=== PATIENT | female | born 1940 | race Caucasian/White ===

== ENCOUNTER 2021-04-13 02:20 | Inpatient (IN) | payer MEDICARE, OTHER ==
[~2021-04-13] VITALS: Ht 162.6 cm; Wt 96.7 kg
[2021-04-13 03:49] LABS: BASOPHILS ABSOLUTE AUTO 0.03 K/mm3 (0.00-0.23); BASOPHILS PERCENT AUTO 0 % (0-2); EOSINOPHILS ABSOLUTE AUTO 0.02 K/mm3 (0.00-0.68); EOSINOPHILS PERCENT AUTO 0 % (0-6); Hematocrit 34.7 % (33.0-51.0); Hemoglobin 11.6 g/dL (11.5-16.0); IMMATURE GRAN ABSOLUTE AUTO 0.05 K/mm3 (0.00-0.10); IMMATURE GRAN PERCENT AUTO 1 % (0-1); LYMPHOCYTES ABSOLUTE AUTO 0.28 K/mm3 (0.84-5.20); LYMPHOCYTES PERCENT AUTO 3 % (21-46); MONOCYTES ABSOLUTE AUTO 0.32 K/mm3 (0.16-1.47); MONOCYTES PERCENT AUTO 3 % (4-13); Mean Corpuscular HGB 33.6 pg (26.0-34.0); Mean Corpuscular HGB Conc 33.4 g/dL (31.5-36.5); Mean Corpuscular Volume 101 fL (80-100); Mean Platelet Volume 10.7 fL (9.1-12.4); NEUTROPHILS ABSOLUTE AUTO 8.84 K/mm3 (1.96-9.15); NEUTROPHILS PERCENT AUTO 93 % (41-73); Platelet Count 140 K/mm3 (150-400); RDW Coefficient Variation 12.6 % (11.7-14.2); RDW Standard Deviation 46.7 fL (35.1-46.3); Red Blood Cell Count 3.45 M/mm3 (3.80-5.20); White Blood Cell Count 9.54 K/mm3 (4.00-11.30)
[2021-04-13 04:12] LABS: Bun/Creatinine Ratio 13.6 (12.0-20.0); Calcium, Blood 9.8 mg/dL (8.5-10.1); Creatinine, Blood 3.98 mg/dL (0.40-1.00); Potassium, Blood 4.9 mmol/L (3.5-5.5)
[2021-04-13 06:23] LABS: Source, Urine Catheter
[2021-04-13 06:26] LABS: Appearance, Urine Clear (Clear); Bilirubin, Urine Neg (Neg); Blood, Urine 5+ (Neg); Color, Urine Yellow (P-Yellow); Glucose Qualitative, Urine Neg (Neg); Ketones, Urine Neg (Neg); Leukocyte Esterase, Urine Neg (Neg); Nitrite, Urine Neg (Neg); Protein, Urine Neg (Neg); Specific Gravity, Urine 1.015 (1.003-1.022); Urobilinogen, Urine NORM (Normal)
[2021-04-13] MEDS ORDERED: AMIODARONE HCL100 M3 PO (06:31)
[2021-04-13] MEDS ORDERED: FURO40 PO (06:31)
[2021-04-13] MEDS ORDERED: POTCHL20ER PO (06:32)
[2021-04-13] MEDS ORDERED: METO25ER PO (06:32)
[2021-04-13] MEDS ORDERED: PANT20 PO (06:32)
[2021-04-13] MEDS ORDERED: Sulindac200 MG PO (06:34)
[2021-04-13] MEDS ORDERED: ELIQUIS2.5 MG PO (06:34)
[2021-04-13 06:42] LABS: Bacteria Many /hpf; Squamous Epithelial Cells Rare /hpf (Few)
[2021-04-13 07:49] LABS: SARS-Cov-2 (COVID-19) PCR, MMC NEGATIVE (NEGATIVE)
--- NOTE | 2021-04-13 10:30 | NUR ---
PT ADMITTED. PT ORIENTED TO ROOM. CALL LIGHT IN REACH. WATER PROVIDED. IV FLUIDS STARTED. PT DENIES NEEDS AT THIS TIME
--- NOTE | 2021-04-13 17:17 | NUR ---
SHIFT SUMMARY PT WORKED WITH PHYSICAL THERAPY. AMBULATED TO THE DOOR AND BACK WITH 1P ASSIST. USING THE BSC FOR TOILETING. STOOL SAMPLE NEEDED. PT HAS LITTLE APPETITE, BUT EATING HER MEALS. DENIES NEED FOR PAIN MEDS AT THIS TIME. DR HARTLEY NOTIFIED ABOUT SCAB ON HER BACK AND CAME TO EVALUATE IT AND UPDATE FAMILY. PT RESTING IN BED, EATING DINNER. CALL LIGHT IN REACH. VS REVIEWED. DR. HARTLEY NOTIFIED OF HR IN THE 40S. PARAMETERS ADDED TO MEDS.
[2021-04-13 19:49] LABS: Bun/Creatinine Ratio 15.9 (12.0-20.0); Creatinine, Blood 3.46 mg/dL (0.40-1.00); Potassium, Blood 4.2 mmol/L (3.5-5.5)
[2021-04-14 05:16] LABS: BASOPHILS ABSOLUTE AUTO 0.02 K/mm3 (0.00-0.23); BASOPHILS PERCENT AUTO 0 % (0-2); EOSINOPHILS ABSOLUTE AUTO 0.02 K/mm3 (0.00-0.68); EOSINOPHILS PERCENT AUTO 0 % (0-6); Hematocrit 31.9 % (33.0-51.0); Hemoglobin 10.4 g/dL (11.5-16.0); IMMATURE GRAN ABSOLUTE AUTO 0.02 K/mm3 (0.00-0.10); IMMATURE GRAN PERCENT AUTO 0 % (0-1); LYMPHOCYTES ABSOLUTE AUTO 1.02 K/mm3 (0.84-5.20); LYMPHOCYTES PERCENT AUTO 13 % (21-46); MONOCYTES ABSOLUTE AUTO 0.75 K/mm3 (0.16-1.47); MONOCYTES PERCENT AUTO 9 % (4-13); Mean Corpuscular HGB Conc 32.6 g/dL (31.5-36.5); Mean Corpuscular Volume 101 fL (80-100); Mean Platelet Volume 11.5 fL (9.1-12.4); NEUTROPHILS ABSOLUTE AUTO 6.27 K/mm3 (1.96-9.15); NEUTROPHILS PERCENT AUTO 78 % (41-73); Platelet Count 132 K/mm3 (150-400); RDW Coefficient Variation 12.5 % (11.7-14.2); RDW Standard Deviation 46.4 fL (35.1-46.3); Red Blood Cell Count 3.15 M/mm3 (3.80-5.20)
[2021-04-14 05:32] LABS: Albumin, Blood 2.4 g/dL (3.4-5.0); Albumin/Globulin Ratio 0.8 (0.8-1.8); Bilirubin, Total 0.5 mg/dL (0.1-1.0); Bun/Creatinine Ratio 15.8 (12.0-20.0); Calcium, Blood 9.5 mg/dL (8.5-10.1); Creatinine, Blood 2.85 mg/dL (0.40-1.00); Globulin, Blood 3.2 g/dL (2.2-4.0); Magnesium, Blood 2.5 mg/dL (1.6-2.4); Potassium, Blood 4.2 mmol/L (3.5-5.5); Total Protein, Blood 5.6 g/dL (6.4-8.2)
--- NOTE | 2021-04-14 06:34 | NUR ---
SHIFT SUMMARY AOX4. VSS. REPORTED MILD PAIN 3-4/10 IN R HIP TO FOOT, GAVE TYLENOL 1X & NO FURTHER DISCOMFORT REPORTED. NO S/SX N/V OR SOB. REPORTS N/T TO BILAT HANDS. IN ISO FOR R/O C. DIFF, HOWEVER PT HASNT HAD ANY BM THIS SHIFT. ABD TENDER TO PALPATION T/O. REPORTS LACK OF APPETITE. ACTIVE BT. CALL LIGHT IN REACH & PT ABLE TO MAKE NEEDS KNOWN.
--- NOTE | 2021-04-14 16:07 | NUR ---
SHIFT SUMMARY FLUIDS WERE RESTARTED TODAY. NS AT 125ML/HR. PT TOLERATING WELL SO FAR. PT AMBULATING TO THE BATHROOM WITH MINIMAL ASSISTANCE. GETS HERSELF IN AND OUT OF BED ON HER OWN. PT AGREEABLE TO GETTING UP INTO CHAIR FOR MEALS AND STAYED UP FOR A FEW HOURS AFTER LUNCH. DENIES NEED FOR PAIN MEDS SO FAR THIS SHIFT. NO OTHER ACUTE CHANGES IN ASSESSMENT AT THIS TIME. VS REVIEWED. PT RESTING IN BED UNTIL DINNER ARRIVES.
--- NOTE | 2021-04-15 04:51 | NUR ---
COMMUNITY DEVELOPMENT AIDE SUMMARY PATIENT HAD A GOOD SHIFT. SHE DID NOT COMPLAIN FOR ANYTHING AT NIGHT. WILL CONTINUE TO MONITOR PATIENT.
[2021-04-15 08:55] LABS: BASOPHILS ABSOLUTE AUTO 0.02 K/mm3 (0.00-0.23); BASOPHILS PERCENT AUTO 0 % (0-2); EOSINOPHILS ABSOLUTE AUTO 0.11 K/mm3 (0.00-0.68); EOSINOPHILS PERCENT AUTO 2 % (0-6); Hematocrit 32.5 % (33.0-51.0); Hemoglobin 10.9 g/dL (11.5-16.0); IMMATURE GRAN ABSOLUTE AUTO 0.03 K/mm3 (0.00-0.10); IMMATURE GRAN PERCENT AUTO 0 % (0-1); LYMPHOCYTES ABSOLUTE AUTO 1.23 K/mm3 (0.84-5.20); LYMPHOCYTES PERCENT AUTO 17 % (21-46); MONOCYTES ABSOLUTE AUTO 0.56 K/mm3 (0.16-1.47); MONOCYTES PERCENT AUTO 8 % (4-13); Mean Corpuscular HGB 33.4 pg (26.0-34.0); Mean Corpuscular HGB Conc 33.5 g/dL (31.5-36.5); Mean Corpuscular Volume 100 fL (80-100); Mean Platelet Volume 10.9 fL (9.1-12.4); NEUTROPHILS ABSOLUTE AUTO 5.23 K/mm3 (1.96-9.15); NEUTROPHILS PERCENT AUTO 73 % (41-73); Platelet Count 161 K/mm3 (150-400); RDW Coefficient Variation 12.3 % (11.7-14.2); RDW Standard Deviation 45.4 fL (35.1-46.3); Red Blood Cell Count 3.26 M/mm3 (3.80-5.20); White Blood Cell Count 7.18 K/mm3 (4.00-11.30)
[2021-04-15 09:13] LABS: Bun/Creatinine Ratio 16.4 (12.0-20.0); Calcium, Blood 9.7 mg/dL (8.5-10.1); Creatinine, Blood 2.2 mg/dL (0.40-1.00); Potassium, Blood 3.8 mmol/L (3.5-5.5)
[2021-04-15 14:10] LABS: A/G RATIO 1.2 (0.7-1.7); ALBUMIN 2.8 g/dL (2.9-4.4); ALPHA-1-GLOBULIN 0.3 g/dL (0.0-0.4); ALPHA-2-GLOBULIN 0.8 g/dL (0.4-1.0); BETA GLOBULIN 0.8 g/dL (0.7-1.3); GAMMA GLOBULIN 0.5 g/dL (0.4-1.8); GLOBULIN, TOTAL 2.3 g/dL (2.2-3.9); M-SPIKE Not Observed g/dL (Not Observed); PROTEIN, TOTAL, SERUM 5.1 g/dL (6.0-8.5)
[2021-04-15] MEDS ORDERED: ACET325 PO (14:19)
[2021-04-15] MEDS ORDERED: ALLO100 PO (14:19)
[2021-04-15] MEDS ORDERED: PRED20 PO (14:21)
[2021-04-15] MEDS ORDERED: LIDOCAINE 4% CREAM TOP (14:21)
--- NOTE | 2021-04-15 15:07 | NUR ---
DISCHARGE SUMMARY PT DC'D @ APPROX 1500 VIA WHEELCHAIR DOWN TO PERSONAL VEHICLE. DAUGHTER PRESENT DURING DISCHARGE INSTRUCTION REVIEW. ALL QUESTIONS ANSWERED @ THIS TIME. IV REMOVED AND SITE APPEARED WNL. NEW RX NEEDED FAXED TO PREFERRED PHARMACY. PT STATES SHE HAS ALL OF HER BELONGINGS.
== END 2021-04-15 15:02 | disposition home health service (06) | DRG 546 ==
LOC: ER 02:20 → MEDS 08:54
PROVIDERS: Student in an Organized Health Care Education/Training Program; ADMIT Internal Medicine
DX: M35.3 Polymyalgia rheumatica (principal); N17.9 Acute kidney failure, unspecified; I50.32 Chronic diastolic (congestive) heart failure; I48.91 Unspecified atrial fibrillation; Z51.5 Encounter for palliative care; Z20.822 Contact with and (suspected) exposure to COVID-19; E86.0 Dehydration; N18.30 Chronic kidney disease, stage 3 unspecified; K21.9 Gastro-esophageal reflux disease without esophagitis; M10.9 Gout, unspecified; Z88.8 Allergy status to other drugs, medicaments and biological substances; Z79.01 Long term (current) use of anticoagulants; Z79.899 Other long term (current) drug therapy
CPT/HCPCS: 36415; 71045; 72170; 72192; 76770; 80048; 80053; 81001; 82550; 83605; 83735; 84165; 84443; 84550; 85025; 85651; 86141; 87040; 87077; 87086; 87186; 90686; 94760; 97110; 97116; 97162; 97166; 97530; 97535; 99285-25; A9270; C9113; J1885; J7030; J7512; P9612; U0004

== ENCOUNTER → 2021-10-22 | Outpatient (CLI) | payer MEDICARE, OTHER ==
[~2021-10-22] MED LIST: ACET325 PO; ALLO100 PO; AMIODARONE HCL100 M3 PO; ELIQUIS2.5 MG PO; FURO40 PO; LIDOCAINE 4% CREAM TOP; METO25ER PO; PANT20 PO; POTCHL20ER PO; PRED20 PO; Sulindac200 MG PO
[2021-10-22 16:00] LABS: Bun/Creatinine Ratio 21.3 (12.0-20.0); Calcium, Blood 9.9 mg/dL (8.5-10.1); Creatinine, Blood 1.88 mg/dL (0.40-1.00); Potassium, Blood 4.8 mmol/L (3.5-5.5)
== END | disposition home or self-care (01) ==
LOC: LAB SHORT 15:41 → LAB 15:41
PROVIDERS: Physician Assistant Surgical
DX: R10.9 Unspecified abdominal pain (principal)
CPT/HCPCS: 80048

== ENCOUNTER → 2022-02-02 | Outpatient (CLI) | payer MEDICARE, OTHER | END | disposition home or self-care (01) | LOC: LAB 11:30 → LAB SHORT 11:30 | DX: R30.9 Painful micturition, unspecified (principal) | CPT/HCPCS: 87077; 87086; 87186 ==